=== PATIENT | male | born 1945 | race Caucasian/White ===

== ENCOUNTER 2019-08-08 06:00 | Outpatient (RCR) | payer MEDICARE, OTHER, SELFPAY | END 2019-09-07 00:01 | LOC: SPT 06:00 | PROVIDERS: Family Provider Family Medicine; Visit Provider Family Medicine | DX: G89.29 Other chronic pain (principal); M53.3 Sacrococcygeal disorders, not elsewhere classified | CPT/HCPCS: 97110 ×6 ==

== ENCOUNTER 2020-03-21 06:00 | Outpatient (RCR) | payer MEDICARE, OTHER, SELFPAY | END 2020-04-07 23:59 | disposition home or self-care (01) | LOC: SPT 06:00 | PROVIDERS: PCP Family Medicine; Referring Provider Family Medicine; Visit Provider Family Medicine | DX: R42 Dizziness and giddiness (principal) | CPT/HCPCS: 95992; 97162 ==

== ENCOUNTER 2020-05-12 10:39 | Outpatient (CLI) | payer MEDICARE, OTHER, SELFPAY ==
--- NOTE | 2020-05-12 10:51 | CT_ITS ---
WS: [id number] CT ABDOMEN PELVIS TECHNIQUE: Contrast-enhanced CT of the abdomen and pelvis with coronal and sagittal reformatted image s. CLINICAL INFORMATION: HEMATURIA/ RENAL MASS PROTOCOL COMPARISON: May 02, 2020 DLP: 1143.[address] scans at [facility] use at least one of these dose optimization techniques: automat ed exposure control; mA and/or kV adjustment per patient size (includes targeted exams where dose is matched to clinical indication); or iterative reconstruction. FINDINGS: Diffuse bladder wall thickening with shallow bladder wall lesions along the dorsal superior and infer ior bladder wall. Lesions midline and eccentric to the right. Approximately 3 lesions visualized. 2 a re broad base with an en plaque appearance with an additional small polypoid lesion. Largest lesion m easures approximately 1.3 x 0.6 cm and Mild diffuse fatty infiltration liver. Portal vein and splenic vein are patent. Gallbladder is contra cted. Normal spleen. Mild fatty atrophy of the pancreas. Adrenal glands are normal. Normal caliber ab dominal aorta. No hydronephrosis in either kidney. Small peripelvic renal cysts. Tiny right renal parenchymal cyst. Prostate enlargement with calcification measuring 5.1 CM. Sigmoid constipation. Mild diffuse bladder wall thickening can be seen with bladder outlet obstruction. No abdominal or inguinal lymphadenopathy . Hypertrophic changes lower thoracic and lumbar spine. CT/CT abdomen pelvis w con* [id number] IMPRESSION: 1. 2 Shallow broad-based En plaque bladder wall lesions and small polypoid les ion involving the dorsal bladder wall. Recommend further evaluation with cystos copy. 2. Normal renal parenchymal enhancement. No hydronephrosis. Small bilateral pe ripelvic cysts. 3. Enlarged Prostate measuring 5.1 cm. Recommend correlation PSA. 4. Mild diffuse bladder wall thickening can be seen with bladder outlet obstru ction 5. Mild constipation.
[2020-05-12] MEDS: iodixanol 320 mg/mL 100mL Btl IV (11:43)
== END 2020-05-12 10:40 | disposition home or self-care (01) ==
PROVIDERS: PCP Family Medicine; Visit Provider Family Medicine
DX: R31.9 Hematuria, unspecified (principal); K59.00 Constipation, unspecified; N40.0 Benign prostatic hyperplasia without lower urinary tract symptoms
CPT/HCPCS: 74177; Q9967

== ENCOUNTER → 2020-05-19 07:42 | Outpatient (BNVA) | payer MEDICARE, OTHER, SELFPAY | PROVIDERS: PCP Family Medicine; Visit Provider Urology | DX: R35.0 Frequency of micturition (principal); R31.0 Gross hematuria; C67.8 Malignant neoplasm of overlapping sites of bladder; R97.20 Elevated prostate specific antigen [PSA] | CPT/HCPCS: 81001 ==

== ENCOUNTER → 2020-07-21 15:12 | Outpatient (BNVA) | payer MEDICARE, OTHER, SELFPAY | PROVIDERS: PCP Family Medicine; Visit Provider Urology | DX: C67.8 Malignant neoplasm of overlapping sites of bladder (principal) | CPT/HCPCS: 81003 ==

== ENCOUNTER → 2020-07-28 11:43 | Outpatient (BNVA) | payer MEDICARE, OTHER, SELFPAY | PROVIDERS: PCP Family Medicine; Visit Provider Urology | DX: R82.81 Pyuria (principal); C67.8 Malignant neoplasm of overlapping sites of bladder | CPT/HCPCS: 81003; 87086 ==

== ENCOUNTER → 2020-08-02 14:08 | Outpatient (BNVA) | payer MEDICARE, OTHER, SELFPAY | PROVIDERS: PCP Family Medicine; Visit Provider Urology | DX: C67.8 Malignant neoplasm of overlapping sites of bladder (principal) | CPT/HCPCS: 81003 ==

== ENCOUNTER → 2020-08-11 12:17 | Outpatient (BNVA) | payer MEDICARE, OTHER, SELFPAY | PROVIDERS: PCP Family Medicine; Visit Provider Urology | DX: C67.8 Malignant neoplasm of overlapping sites of bladder (principal) | CPT/HCPCS: 81003 ==

== ENCOUNTER → 2020-08-18 07:22 | Outpatient (BNVA) | payer MEDICARE, OTHER, SELFPAY | PROVIDERS: PCP Family Medicine; Visit Provider Urology | DX: C67.8 Malignant neoplasm of overlapping sites of bladder (principal) | CPT/HCPCS: 81003 ==

== ENCOUNTER → 2020-08-25 10:45 | Outpatient (BNVA) | payer MEDICARE, OTHER, SELFPAY | PROVIDERS: PCP Family Medicine; Visit Provider Urology | DX: C67.8 Malignant neoplasm of overlapping sites of bladder (principal) | CPT/HCPCS: 81003 ==

== ENCOUNTER → 2020-09-07 11:31 | Outpatient (BNVA) | payer MEDICARE, OTHER, SELFPAY | PROVIDERS: PCP Family Medicine; Visit Provider Urology | DX: C67.8 Malignant neoplasm of overlapping sites of bladder (principal) | CPT/HCPCS: 81003 ==

== ENCOUNTER → 2020-11-03 10:40 | Outpatient (BNVA) | payer MEDICARE, OTHER, SELFPAY | PROVIDERS: PCP Family Medicine; Visit Provider Urology | DX: C67.8 Malignant neoplasm of overlapping sites of bladder (principal) | CPT/HCPCS: 81003 ==

== ENCOUNTER → 2020-11-10 11:32 | Outpatient (BNVA) | payer MEDICARE, OTHER, SELFPAY | PROVIDERS: PCP Family Medicine; Visit Provider Urology | DX: C67.8 Malignant neoplasm of overlapping sites of bladder (principal) | CPT/HCPCS: 81003 ==

== ENCOUNTER → 2020-11-17 12:28 | Outpatient (BNVA) | payer MEDICARE, OTHER, SELFPAY | PROVIDERS: PCP Family Medicine; Visit Provider Urology | DX: C67.8 Malignant neoplasm of overlapping sites of bladder (principal); R31.9 Hematuria, unspecified | CPT/HCPCS: 81003; 87086 ==

== ENCOUNTER → 2021-02-09 11:04 | Outpatient (BNVA) | payer MEDICARE, OTHER, SELFPAY | PROVIDERS: PCP Family Medicine; Visit Provider Urology | DX: C67.8 Malignant neoplasm of overlapping sites of bladder (principal) | CPT/HCPCS: 81003 ==

== ENCOUNTER → 2021-02-16 10:59 | Outpatient (BNVA) | payer MEDICARE, OTHER, SELFPAY | PROVIDERS: PCP Family Medicine; Visit Provider Urology | DX: C67.8 Malignant neoplasm of overlapping sites of bladder (principal) | CPT/HCPCS: 81003 ==

== ENCOUNTER → 2021-02-23 11:09 | Outpatient (BNVA) | payer MEDICARE, OTHER, SELFPAY | PROVIDERS: PCP Family Medicine; Visit Provider Urology | DX: C67.8 Malignant neoplasm of overlapping sites of bladder (principal) | CPT/HCPCS: 81003 ==

== ENCOUNTER → 2021-03-25 17:02 | Outpatient (BNVA) | payer MEDICARE, OTHER, SELFPAY | PROVIDERS: PCP Family Medicine; Visit Provider Nurse Practitioner | DX: Z20.822 Contact with and (suspected) exposure to COVID-19 (principal) | CPT/HCPCS: 87635 ==

== ENCOUNTER → 2021-09-14 11:12 | Outpatient (BNVA) | payer MEDICARE, OTHER, SELFPAY | PROVIDERS: PCP Family Medicine; Visit Provider Urology | DX: C67.8 Malignant neoplasm of overlapping sites of bladder (principal) | CPT/HCPCS: 81003 ==

== ENCOUNTER → 2021-09-20 16:18 | Outpatient (BNVA) | payer MEDICARE, OTHER, SELFPAY | PROVIDERS: PCP Family Medicine; Visit Provider Urology | DX: C67.8 Malignant neoplasm of overlapping sites of bladder (principal) | CPT/HCPCS: 81003 ==

== ENCOUNTER → 2021-09-28 10:24 | Outpatient (BNVA) | payer MEDICARE, OTHER, SELFPAY | PROVIDERS: PCP Family Medicine; Visit Provider Urology | DX: C67.8 Malignant neoplasm of overlapping sites of bladder (principal) | CPT/HCPCS: 81003 ==

== ENCOUNTER 2022-03-18 15:16 | Outpatient (CLI) | payer MEDICARE, OTHER, SELFPAY ==
--- NOTE | 2022-03-18 15:36 | CT_ITS ---
WS: [id number] CT CERVICAL SPINE HISTORY: ACUTE LEFT HAND WEAKNESS, ACUTE LEFT ARM WEAKNESS TECHNIQUE: Contiguous 2.5 mm axial imaging performed through the entire cervical spine. Sagittal and coronal reformats also performed. All CT scans at [facility] use at least one of these dose o ptimization techniques: automated exposure control; mA and/or kV adjustment per patient size (include s targeted exams where dose is matched to clinical indication); or iterative reconstruction. DLP: 227.97 mGy.cm COMPARISON: None available. Mild straightening of the normal cervical lordosis. Craniocervical junction is normally aligned. Late ral masses are aligned. Odontoid is intact. Moderate disc space narrowing at C5-6 and C6-7. No fractu re. Facet joints are normally aligned. C2-C3: Small osteophytes. No stenosis. C3-C4: Mild osteophytic ridging and mild facet joint arthritis. Mild bilateral foraminal stenosis, LE FT greater than RIGHT. C4-C5: Mild osteophytic ridging and facet joint arthritis. Mild encroachment upon the central canal. Mild central and bilateral foraminal stenosis. C5-C6: Moderate osteophytic ridging encroaching upon the ventral thecal sac. More significant encroac hment upon the RIGHT lateral thecal sac and foramen. There is additional central disc protrusion. Mil d central stenosis with moderate RIGHT foraminal and mild LEFT foraminal stenosis. C6-C7: Diffuse osteophytic ridging. Osteophytes contact at the ventral thecal sac, bilateral. Moderat e central stenosis with moderate bilateral foraminal stenosis. C7-T1: Normal. Small bilateral cervical chain lymph nodes. No abnormality at the lung apices. CT/CT cervical spin wo con* [id number] IMPRESSION: 1. No cervical spine fracture. 2. Moderate central and bilateral foraminal stenosis at C6-7. Predominantly du e to bony hypertrophy. 3. Mild central, LEFT foraminal and moderate RIGHT foraminal stenosis at C5-6. 4. Mild bilateral foraminal stenosis at C3-4, LEFT greater than RIGHT. 5. Mild central and bilateral foraminal stenosis at C4-5.
--- NOTE | 2022-03-18 15:36 | CT_ITS ---
WS: [id number] CT HEAD NONCONTRAST HISTORY: ACUTE LEFT HAND WEAKNESS, ACUTE LEFT ARM WEAKNESS TECHNIQUE: Contiguous axial imaging performed through the brain in 2.5 mm imaging. Bone and soft tiss ue windows. Sagittal and coronal reformats reviewed. All CT scans at [facility] use at least one of these dose optimization techniques: automated exposure control; mA and/or kV adjustment per pa tient size (includes targeted exams where dose is matched to clinical indication); or iterative recon struction. DLP: 1085.38 mGy.cm COMPARISON: None available. No acute intracranial hemorrhage, midline shift or mass effect. Mild atrophy and mild small vessel ischemic disease. No prior infarct. Ventricles: Normal size with no hydrocephalus. No inferior displacement of cerebellar tonsils. Paranasal sinuses: Mild mucoperiosteal thickening in the LEFT ethmoid air cells. Mastoid air cells: Well pneumatized. Calvarium and scalp: Skull is intact with no soft tissue edema or swelling. CT/CT head wo con* [id number] IMPRESSION: 1. No acute intracranial hemorrhage or edema. 2. Mild atrophy and small vessel ischemic disease.
== END 2022-03-18 15:17 | disposition home or self-care (01) ==
LOC: RAD 15:23
PROVIDERS: PCP Family Medicine; Visit Provider Family Medicine
DX: R29.898 Other symptoms and signs involving the musculoskeletal system (principal)
CPT/HCPCS: 70450; 72125

== ENCOUNTER 2022-04-18 11:13 | Outpatient (CLI) | payer MEDICARE, OTHER, SELFPAY ==
--- NOTE | 2022-04-18 11:20 | MR_ITS ---
WS: [email or web address] MRI CERVICAL SPINE NONCONTRAST TECHNIQUE: Sagittal T1, T2 and STIR imaging. Axial T2, gradient, and fiesta imaging. CLINICAL INFORMATION: L CERVICAL RADICULOPATHY COMPARISON: None. FINDINGS: Straightening of the normal cervical lordosis. Cord signal is normal. Mild disc bulging C4-C5 and C5- C6. Cord signal is normal. C2-C3: Normal. C3-C4: Mild disc bulging with slight contact of the cervical cord. Osteophytic ridging. Mild central canal stenosis. Moderate to severe LEFT and mild RIGHT bony foraminal narrowing. Mild facet arthropat hy. C4-C5: Disc osteophyte complex with endplate ridging. Mild central canal stenosis and slight indentat ion on cervical cord. Moderate LEFT and mild RIGHT bony foraminal narrowing. Mild facet arthropathy. C5-C6: Disc osteophyte complex with endplate ridging. Moderate central canal stenosis with slight ind entation on cervical cord. Moderate to severe bilateral bony foraminal narrowing worse in the RIGHT. C6-C7: Mild disc bulging with osteophytic ridging. Moderate to severe bilateral bony foraminal narrow ing. Mild facet arthropathy. Mild central canal stenosis. C7-T1: Small LEFT pericentral disc herniation with mild central canal stenosis. Moderate LEFT and mil d RIGHT foraminal narrowing. Mild facet arthropathy. Tiny cysts in the posterior aspect of the pituitary most likely incidental. MR/MR cervical spin wo con* [id number] IMPRESSION: 1. Straightening of the normal cervical lordosis. Moderate spondylitic changes . 2. Mild central canal stenosis C3-C4, C4-C5, moderate C5-C6, and mild C6-C7 du e to disc osteophyte complexes with slight indentation on the cervical cord. Th is is worse at C5-C6. 3. Multilevel moderate to severe bony foraminal narrowing worse at LEFT C3-C4, LEFT C4-C5, bilateral C5-C6, and bilateral C6-C7. 4. Mild to moderate LEFT C7-T1 foraminal narrowing with LEFT subarticular shal low herniation. 5. Tiny cysts in the posterior aspect of the pituitary most likely incidental. This can be further evaluated with MRI of the head without and with gadolinium enhancement with pituitary protocol. Recommend correlation with pituitary func tion studies.
== END 2022-04-18 11:14 | disposition home or self-care (01) ==
LOC: RAD 11:13
PROVIDERS: PCP Family Medicine; Visit Provider Family Medicine
DX: M54.12 Radiculopathy, cervical region (principal); M48.02 Spinal stenosis, cervical region; M50.23 Other cervical disc displacement, cervicothoracic region
CPT/HCPCS: 72141

== ENCOUNTER 2022-04-24 15:04 | Outpatient (CLI) | payer MEDICARE, OTHER, SELFPAY ==
--- NOTE | 2022-04-24 15:13 | XR_ITS ---
WS: [email or web address] SCREENING DEXA SCAN [employer] CLINICAL INFORMATION: CERVICAL DISORDER W/MYELOPATHY OF CERVIOTHORACIC COMPARISON: None. FINDINGS: The L1-L4 bone mineral density measures 1.255 g/cm2. This corresponds to a T score score of 0.3 and Z score of 1.1. Left femoral neck bone mineral density measures 0.901 g/cm2. This corresponds to a T score of -1.4 an d Z score of -0.3. Right femoral neck bone mineral density measures 0.921 g/cm2. This corresponds to a T score -1.3of an d Z score of -0.2. Mean femoral neck bone mineral density measures 0.911 g/cm2. This corresponds to a T score of -1.3 an d Z score of -0.2. XR/XR DEXA axial skeleton* [id number] IMPRESSION: Normal bone mineralization lumbar spine. Osteopenia femoral necks. Patient's FRAX calculated 10 year probability for major osteoporotic fracture i s 11.6 % and osteoporotic hip fracture is 5.1%.
== END 2022-04-24 15:05 | disposition home or self-care (01) ==
LOC: RAD 15:06
PROVIDERS: PCP Family Medicine; Visit Provider Neurological Surgery
DX: Z79.52 Long term (current) use of systemic steroids (principal); M50.03 Cervical disc disorder with myelopathy, cervicothoracic region
CPT/HCPCS: 77080

== ENCOUNTER 2022-05-08 06:00 | Outpatient (RCR) | payer MEDICARE, OTHER, SELFPAY | END 2022-05-08 23:59 | disposition home or self-care (01) | LOC: SPT 06:00 | PROVIDERS: PCP Family Medicine; Visit Provider Neurological Surgery | DX: M50.03 Cervical disc disorder with myelopathy, cervicothoracic region (principal) | CPT/HCPCS: 97161 ==

== ENCOUNTER 2022-07-03 06:00 | Outpatient (RCR) | payer MEDICARE, OTHER, SELFPAY | END 2022-07-08 23:59 | disposition home or self-care (01) | LOC: SPT 06:00 | PROVIDERS: PCP Family Medicine; Visit Provider Neurological Surgery | DX: M50.03 Cervical disc disorder with myelopathy, cervicothoracic region (principal) | CPT/HCPCS: 97161 ==

== ENCOUNTER 2022-07-09 06:00 | Outpatient (RCR) | payer MEDICARE, OTHER, SELFPAY | END 2022-08-07 23:59 | disposition home or self-care (01) | LOC: SPT 06:00 | PROVIDERS: PCP Family Medicine; Visit Provider Neurological Surgery | DX: M50.03 Cervical disc disorder with myelopathy, cervicothoracic region (principal) | CPT/HCPCS: 97110 ==

== ENCOUNTER 2022-08-08 06:00 | Outpatient (RCR) | payer MEDICARE, OTHER, SELFPAY | END 2022-09-07 23:59 | disposition home or self-care (01) | LOC: SPT 06:00 | PROVIDERS: PCP Family Medicine; Visit Provider Neurological Surgery | DX: M50.03 Cervical disc disorder with myelopathy, cervicothoracic region (principal) | CPT/HCPCS: 97110 ==

== ENCOUNTER 2022-09-08 06:00 | Outpatient (RCR) | payer MEDICARE, OTHER, SELFPAY | END 2022-10-08 23:59 | disposition home or self-care (01) | LOC: SPT 06:00 | PROVIDERS: PCP Family Medicine; Visit Provider Neurological Surgery | DX: M50.03 Cervical disc disorder with myelopathy, cervicothoracic region (principal) | CPT/HCPCS: 97110 ==

== ENCOUNTER 2022-10-09 06:00 | Outpatient (RCR) | payer MEDICARE, OTHER, SELFPAY | END 2022-11-05 23:59 | disposition home or self-care (01) | LOC: SPT 06:00 | PROVIDERS: PCP Family Medicine; Visit Provider Neurological Surgery | DX: M50.03 Cervical disc disorder with myelopathy, cervicothoracic region (principal) | CPT/HCPCS: 97110 ==

== ENCOUNTER 2022-10-11 07:52 | Outpatient (CLI) | payer MEDICARE, OTHER, SELFPAY ==
--- NOTE | 2022-10-11 07:59 | MR_ITS ---
WS: [email or web address] MRI BRAIN WITHOUT AND WITH CONTRAST, ATTENTION DIRECTED TO THE PITUITARY GLAND HISTORY: PITUITARY CYST COMPARISON: MRI 04/18/2022 TECHNIQUE: Diffusion-weighted imaging, axial T2 sequence, and postcontrast images in 3 planes are per formed. High-resolution coronal and sagittal imaging performed through the pituitary region with and without intravenous gadolinium. MultiHance 16 cc. No diffusion-weighted abnormalities. Very minimal atrophy and small vessel ischemic disease. No prior infarct or significant volume loss. Kemp-white matter differentiation is normal. Ventricles are norm al. Pituitary is normal size. No enhancement. The previously described pituitary cyst in the posterior do rsum sella are not as well seen on today's examination. These may be part of the posterior dorsum breanna la. There are no enhancing masses identified. Very benign in appearance. No interval adverse change s yobany 04/18/2022. No abnormality at the cerebellopontine angles. Posterior fossa is negative. Sinuses are clear. No mastoid air cell effusion. MR/MR pituitary wo/w con* [id number] IMPRESSION: 1. Recently described possible cysts in the posterior dorsum sellae are not as well visualized on the dedicated pituitary evaluation. There is no solid mass or enhancing mass. Normal size of the pituitary gland. 2. Very minimal gentle atrophy and small vessel ischemic disease. No enhancing masses.
[2022-10-11] MEDS: gadobenate dimeglumine 20 mL vial IV (09:24)
== END 2022-10-11 07:53 | disposition home or self-care (01) ==
LOC: RAD 07:53
PROVIDERS: PCP Family Medicine; Visit Provider Family Medicine
DX: E23.6 Other disorders of pituitary gland (principal); I67.82 Cerebral ischemia
CPT/HCPCS: 70553; A9577

== ENCOUNTER 2022-11-06 06:00 | Outpatient (RCR) | payer MEDICARE, OTHER, SELFPAY | END 2022-11-20 23:59 | disposition home or self-care (01) | LOC: SPT 06:00 | PROVIDERS: PCP Family Medicine; Visit Provider Neurological Surgery | DX: M50.03 Cervical disc disorder with myelopathy, cervicothoracic region (principal) | CPT/HCPCS: 97110 ==

== ENCOUNTER → 2023-03-31 15:48 | Outpatient (BNVA) | payer MEDICARE, OTHER, SELFPAY | PROVIDERS: PCP Family Medicine; Visit Provider Dermatology | DX: L57.0 Actinic keratosis (principal); L82.1 Other seborrheic keratosis; L81.4 Other melanin hyperpigmentation; S30.861A Insect bite (nonvenomous) of abdominal wall, initial encounter; W57.XXXA Bitten or stung by nonvenomous insect and other nonvenomous arthropods, initial encounter | CPT/HCPCS: 17000; 17003; 99213 ==

== ENCOUNTER → 2024-04-02 10:29 | Outpatient (BNVA) | payer MEDICARE, OTHER, SELFPAY | PROVIDERS: PCP Family Medicine; Visit Provider Nurse Practitioner Family | DX: L57.0 Actinic keratosis (principal); L81.4 Other melanin hyperpigmentation; L82.1 Other seborrheic keratosis; D22.39 Melanocytic nevi of other parts of face; I78.8 Other diseases of capillaries | CPT/HCPCS: 17000; 99213 ==

== ENCOUNTER → 2024-09-21 09:00 | Outpatient (BNVA) | payer MEDICARE, OTHER, SELFPAY | PROVIDERS: PCP Family Medicine; Visit Provider Nurse Practitioner Family | DX: L82.1 Other seborrheic keratosis (principal); L82.0 Inflamed seborrheic keratosis; L29.89 Other pruritus; R20.8 Other disturbances of skin sensation; D48.5 Neoplasm of uncertain behavior of skin; L57.0 Actinic keratosis | CPT/HCPCS: 11102; 17000; 17110; 99212 ==

== ENCOUNTER → 2025-03-21 11:01 | Outpatient (BNVA) | payer MEDICARE, OTHER, SELFPAY | PROVIDERS: PCP Family Medicine; Visit Provider Nurse Practitioner Family | DX: L57.8 Other skin changes due to chronic exposure to nonionizing radiation (principal); L81.4 Other melanin hyperpigmentation; D18.01 Hemangioma of skin and subcutaneous tissue; L57.0 Actinic keratosis | CPT/HCPCS: 17000; 99213 ==

== ENCOUNTER → 2025-07-06 10:43 | Outpatient (BNVA) | payer MEDICARE, OTHER, SELFPAY | PROVIDERS: PCP Family Medicine; Visit Provider Nurse Practitioner Family | DX: D23.71 Other benign neoplasm of skin of right lower limb, including hip (principal); I78.8 Other diseases of capillaries; L57.8 Other skin changes due to chronic exposure to nonionizing radiation; L82.1 Other seborrheic keratosis; D18.01 Hemangioma of skin and subcutaneous tissue; L57.0 Actinic keratosis | CPT/HCPCS: 17000; 99213 ==